=== PATIENT | male | born 1985 | race African-American/Black ===

== ENCOUNTER 2017-03-02 12:12 | Emergency (ER) | payer OTHER ==
[~2017-03-02] VITALS: Ht 167.6 cm; Wt 83.9 kg
[2017-03-02 14:07] LABS: URINE SOURCE CLEAN CATCH
[2017-03-02 14:16] LABS: URINE APPEARANCE CLEAR; URINE BILIRUBIN NEG (NEG); URINE BLOOD NEG (NEG); URINE COLOR DK YELLOW; URINE GLUCOSE NEG (NEG); URINE KETONE NEG (NEG); URINE LEUKOCYTE ESTERASE NEG (NEG); URINE NITRATE NEG (NEG); URINE PH 5.5 (5-8); URINE PROTEIN NEG (NEG); URINE UROBILINOGEN 0.2 MG/DL (NEG)
[2017-03-02 14:37] LABS: CULTURE INDICATED? NO
[2017-03-07 01:46] LABS: CHLAMYDIA TRACH Not Detected (Not Detected); N GONOR Not Detected (Not Detected)
== END 2017-03-02 14:45 | disposition home or self-care (01) ==
LOC: CED 12:12 → CFTX 12:12 → CED 13:56 → CFTX 14:45
PROVIDERS: Nurse Practitioner
DX: R30.0 Dysuria (principal); F17.200 Nicotine dependence, unspecified, uncomplicated
CPT/HCPCS: 81003; 87491; 87591; 99283